=== PATIENT | male | born 1960 | race Caucasian/White ===

== ENCOUNTER 2019-02-23 09:58 | Emergency (ER) | payer OTHER ==
[2019-02-23] MEDS ORDERED: hydrOXYzine HCl 50 MG/ML SDV IM ONE (10:19)
[2019-02-23] MEDS ORDERED: Dexamethasone 4 MG/ML SDV IM ONE (10:21)
[2019-02-23] MEDS ORDERED: methylPREDNISolone Sodium Succinate 125 MG/2 ML SDV IVPUSH ONE (10:22)
--- NOTE | 2019-02-23 10:36 | EDM.PDOC ---
ED HPI GENERAL MEDICAL PROBLEM - General Chief Complaint: Skin Complaint Stated Complaint: FACE AND NECK SWELLING Time Seen by Provider: 02/23/19 10:00 Source of Information: Reports: Patient, Family History Limitations: Reports: No Limitations - History of Present Illness INITIAL COMMENTS - FREE TEXT/NARRATIVE: Patient states that this morning approximately 5 AM he took 381 mg aspirins secondary to having some soreness after putting a procedure plain fence yesterday with a glass of milk since approximately 45 minutes later he started feeling his throat and itching felt like it was getting swollen along with his lips started to swell states he has had this in the past when he takes NSAIDs for the Motrin or aspirin he denies any trouble holding spit or any trouble breathing states that he did not take any medication thought it would go away on its own but he decided to come to the ER approximately 9:30 he denies any other complaints at this time no shortness breath no chest pain or trouble swallowing or speaking Onset: Today Quality: Reports: Same as Previous Episode Improves with: Reports: None Worsens with: Reports: None - Related Data Allergies Allergy/AdvReac Type Severity Reaction Status Date / Time No Known Allergies Allergy Verified 02/23/19 10:25 Home Meds: Home Meds . [No Known Home Meds] 09/13/18 [History] Past Medical History - Past Health History Medical/Surgical History: Denies Medical/Surgical History - Past Surgical History GI Surgical History: Reports: Cholecystectomy, Colonoscopy Musculoskeletal Surgical History: Reports: Other (See Below) Other Musculoskeletal Surgeries/Procedures:: knee surgery ED ROS GENERAL - Review of Systems Review Of Systems: See Below Constitutional: Reports: No Symptoms HEENT: Reports: Throat Swelling, Other (Lips swelling denies any tongue swelling ). Denies: Throat Pain Respiratory: Reports: No Symptoms. Denies: Shortness of Breath, Wheezing, Pleuritic Chest Pain, Cough Cardiovascular: Reports: No Symptoms Endocrine: Reports: No Symptoms GI/Abdominal: Reports: No Symptoms : Reports: No Symptoms Musculoskeletal: Reports: No Symptoms Skin: Reports: No Symptoms Neurological: Reports: No Symptoms Psychiatric: Denies: Agitation, Anxiety, Confusion Hematologic/Lymphatic: Reports: No Symptoms Immunologic: Reports: No Symptoms ED EXAM, SKIN/RASH Exam: See Below Exam Limited By: No Limitations General Appearance: Alert, WD/WN, No Apparent Distress Eye Exam: Bilateral Eye: PERRL Ears: Normal External Exam, Normal Canal, Normal TMs Nose: Normal Inspection, Normal Mucosa, No Blood, Clear Rhinorrhea. No: Nasal Swelling Throat/Mouth: Normal Inspection, Normal Teeth, Normal Gums, Normal Oropharynx, Normal Voice, No Airway Compromise, Other (Noted edema to the lips no laryngeal edema patient has a MP of 1 uvula is midline no edema normal speech no adenopathy). No: Normal Lips, Dysphagia Head: Atraumatic, Normocephalic Respiratory/Chest: No Respiratory Distress, Lungs Clear, Normal Breath Sounds, No Accessory Muscle Use. No: Respiratory Distress, Rhonchi, Wheezing, Retractions Cardiovascular: Normal Peripheral Pulses, Regular Rate, Rhythm, No Edema, No Gallop, No JVD, No Murmur GI/Abdominal: Normal Bowel Sounds, Soft, Non-Tender, No Organomegaly Extremities: Normal Inspection, Normal Range of Motion, Non-Tender Neurological: Alert, Oriented, CN II-XII Intact, Normal Cognition, Normal Gait Psychiatric: Normal Affect, Normal Mood Skin: Warm, Dry, Intact, Normal Color Course - Vital Signs Last Recorded V/S: Last Vital Signs Temp 36.9 C 02/23/19 10:05 Pulse 53 L 02/23/19 10:05 Resp 18 02/23/19 10:05 BP 144/70 H 02/23/19 10:05 Pulse Ox 95 02/23/19 10:05 - Orders/Labs/Meds Orders: Active Orders 24 hr Category Date Time Status Famotidine [Pepcid] Med 02/23/19 20:00 Active 20 mg PO BID Medication Orders Famotidine (Pepcid) 20 mg PO BID [facility] Meds: Medications Generic Name Dose Route Start Last Admin Trade Name Freq PRN Reason Stop Dose Admin Famotidine 20 mg 02/23/19 20:00 Pepcid PO BID ABA Discontinued Medications Generic Name Dose Route Start Last Admin Trade Name Freq PRN Reason Stop Dose Admin Dexamethasone 8 mg 02/23/19 10:21 02/23/19 10:48 Dexamethasone IM 02/23/19 10:22 8 mg ONETIME ONE Administration Famotidine 20 mg 02/23/19 10:51 02/23/19 11:00 Pepcid PO 02/23/19 10:52 20 mg ONETIME ONE Administration Hydroxyzine HCl 50 mg 02/23/19 10:19 02/23/19 10:48 Vistaril IM 02/23/19 10:20 50 mg ONETIME ONE Administration Methylprednisolone Sodium Succinate 125 mg 02/23/19 10:22 02/23/19 10:45 Solu-Medrol IVPUSH 02/23/19 10:23 125 mg ONETIME ONE Administration - Re-Assessments/Exams Free Text/Narrative Re-Assessment/Exam: 02/23/19 10:34 Patient was given 50 mg of Vistaril IM and 20 mg of Pepcid by mouth Decadron 8 mg IM Solu-Medrol 125 mg IM patient was also instructed at home if signs/ symptoms started again / reoccurred and he needed to take 50 mg of Benadryl along [id number] zantac by mouth at one time Patient will be observed in the ER until symptoms resolve and feels better 02/23/19 11:20 Patient was rechecked states lip swelling has gone down he is able to drink water with no issues and says his throat feels normal and he feels much better i will observed the patient for another 30-45 minutes and if normal will discharge home Departure - Departure Time of Disposition: 11:50 Disposition: Home, Self-Care 01 Condition: Good Clinical Impression: Angioedema - Discharge Information Instructions: Angioedema, [id number] Referrals: Carmela Marrufo MD [Primary Care Provider] - Forms: ED Department Discharge - Problem List & Annotations (1) Allergic reaction SNOMED Code(s): 873285162 Code(s): T78.40XA - ALLERGY, UNSPECIFIED, INITIAL ENCOUNTER Status: Acute Current Visit: No (2) Angioedema SNOMED Code(s): 92627004 Code(s): T78.3XXA - ANGIONEUROTIC EDEMA, INITIAL ENCOUNTER Status: Acute Current Visit: Yes (3) Angioedema SNOMED Code(s): 90111286 Code(s): T78.3XXA - ANGIONEUROTIC EDEMA, INITIAL ENCOUNTER Status: Acute Current Visit: No Qualifiers: Encounter type: initial encounter Qualified Code(s): T78.3XXA - Angioneurotic edema, initial encounter - My Orders Last 24 Hours: My Active Orders 02/23/19 20:00 Famotidine [Pepcid] 20 mg PO BID - Assessment/Plan Last 24 Hours: My Active Orders 02/23/19 20:00 Famotidine [Pepcid] 20 mg PO BID Patient was rechecked at 1150 states feels 100% better no issues with swallowing and tightness of the throat no tongue swelling since lips almost feel normal he is okay with the diagnosis and treatment and wishes to go home understands need signs symptoms to return to the ER Plan: Patient has been instructed to take Benadryl 50 mg by mouth and 300 mg of Zantac by mouth at home again tonight patient understands signs and symptoms and need to return to the ER gives verbal understanding along with his
[2019-02-23] MEDS ORDERED: Famotidine 20 MG Tab PO ONE (10:51)
[2019-02-23 10:55] VITALS: BP 144/70
[2019-02-23] MEDS ORDERED: Famotidine 20 MG Tab PO SCH (20:00)
== END 2019-02-23 11:58 | disposition home or self-care (01) ==
LOC: VM.ED 09:58
DX: T78.3XXA Angioneurotic edema, initial encounter (principal)
CPT/HCPCS: 96372; 96374; 96375; 99283-25; A9270-GY; J1100; J2930; J3410